=== PATIENT | male | born 1960 | race Caucasian/White ===

== ENCOUNTER 2018-06-12 02:45 | Emergency (ER) | payer MEDICAID, OTHER ==
[~2018-06-12] VITALS: Ht 175.3 cm; Wt 99.5 kg
[2018-06-12 02:53] VITALS: Ht 175.3 cm; Wt 99.5 kg
[2018-06-12] MEDS ORDERED: ACET500C5 PO (04:06)
[2018-06-12] MEDS ORDERED: BENA20TA65 PO (04:06)
--- NOTE | 2018-06-12 04:11 | ERD ---
ER Documentation Chief Complaint Chief Complaint Pt sent by clinic for HTN, med given at clinic HPI 58-year-old male is referred by clinic for elevated blood pressure. He was given an unspecified medication at the clinic. His blood pressure at triage is 158/83. Denies any chest pain, shortness of breath, weakness, deficits, visual changes mild posterior headache. States he has had high blood pressure in the past but he treated it with diet. ROS All systems reviewed and are negative except as per history of present illness. Medications Home Meds Active Scripts Acetaminophen* (Tylophen*) 500 Mg Capsule, 1 CAP PO Q6H PRN for PAIN AND OR ELEVATED TEMP, #20 CAP Prov:FE LARKIN MD 06/12/18 Benazepril Hcl* (Lotensin*) 20 Mg Tablet, 20 MG PO DAILY, #30 TAB Prov:FE LARKIN MD 06/12/18 Allergies Allergies: Coded Allergies: No Known Allergy (Unverified , 06/12/18) PMhx/Soc Medical and Surgical Hx: pt denies Medical Hx, pt denies Surgical Hx History of Surgery: No Anesthesia Reaction: No Hx Neurological Disorder: No Hx Respiratory Disorders: No Hx Cardiac Disorders: No Hx Psychiatric Problems: No Hx Miscellaneous Medical Probl: No Hx Alcohol Use: No Hx Substance Use: No Hx Tobacco Use: No Smoking Status: Never smoker FmHx Family History: No diabetes, No coronary disease, No other Physical Exam Vitals Vital Signs Date Temp Pulse Resp B/P (MAP) Pulse Ox O2 O2 Flow FiO2 Time Delivery Rate 06/12/18 97.8 85 16 158/83 88 02:53 (108) Physical Exam Const: No acute distress Head: Atraumatic Eyes: Normal Conjunctiva ENT: Normal External Ears, Nose and Mouth. Neck: Full range of motion. No meningismus. Resp: Clear to auscultation bilaterally Cardio: Regular rate and rhythm, no murmurs Abd: Soft, non tender, non distended. Normal bowel sounds Skin: No petechiae or rashes Back: No midline or flank tenderness Ext: No cyanosis, or edema Neur: Awake and alert. No appreciable focal neurologic deficits. Normal gait. Psych: Normal Mood and Affect Results 24 hrs Laboratory Tests Test 06/12/18 03:59 Bedside Urine pH (LAB) 6.0 Bedside Urine Protein (LAB) Negative Bedside Urine Glucose (UA) Negative Bedside Urine Ketones (LAB) Negative Bedside Urine Blood Negative Bedside Urine Nitrite (LAB) Negative Bedside Urine Leukocyte Esterase (L Negative Procedures/MDM EKG: Rate/Rhythm: Normal Sinus Rhythm. Pulse equals 78 QRS, ST, T-waves: No changes consistent w/ acute ischemia Impression: No evidence of ischemia or arrhythmia. Impression-normal EKG Urine is negative for abnormal findings. Patient presents with elevated blood pressure without signs of hypertensive emergency, endorgan damage. Posterior headache suggestive of likely tension headache. We will initiate Lotensin treatment, primary care follow-up and return precautions. The patient was stab le with no new complaints during the ER course. Clinically, there is no current evidence to suggest meningitis, sepsis, acute abdomen, pneumonia, stroke, acute coronary syndrome, pulmonary embolism, aortic dissection or any other emergent condition appearing to require further evaluation or hospitalization. Patient counseled regarding my diagnostic impression and care plan. Prior to discharge all questions answered. Pt agrees with treatment plan and understands strict return precautions. Pt is instructed to follow up with primary care provider within 24-48 hours. Precautionary instructions provided including instructions to return to the ER if not improving or for any worsening or changing symptoms or concerns. Disclaimer: Inadvertent spelling and grammatical errors are likely due to EHR/dictation software use and do not reflect on the overall quality of patient care. Also, please note that the electronic time recorded on this note does not necessarily reflect the actual time of the patient encounter. Departure Diagnosis: Primary Impression: Hypertension Hypertension type: unspecified Qualified Codes: I10 - Essential (primary) hypertension Condition: Stable Patient Instructions: Hypertension, New (Begin Treatment) Referrals: NO PRIMARY,CARE PHYSICIAN (PCP) [facility]) Usted se matthew hecho un examen mdico de control que le indica que no est en sidra condicin que requiera tratamiento urgente en el Departamento de Emergencia. Un estudio ms profundo y el tratamiento de huynh condicin pueden esperar sin ningn riesgo hasta que usted sea atendida/o en el consultorio de huynh mdico o sidra clnica. Es responsabilidad suya arreglar sidra bhaskar para el seguimiento del duran. MANEJO DE CONDICIONES NO URGENTES EN EL FUTURO 1) Si usted tiene un mdico de atencin primaria: Usted debera llamar a huynh mdico de atencin primaria antes de venir al dep artamento de emergencia. Despus de las horas de consultorio, huynh doctor o huynh asociado/a est disponible por telfono. El mdico o enfermero de odell en el servicio telefnico puede asesorarle por bebeto medio para atender el problema, o duran contrario se puede programar sidra bhaskar. 2) Si usted no tiene un mdico de atencin primaria: Llame al mdico o clnica de referencia que aparece abajo levi las horas de consultorio para hacer sidra bhaskar para que le vean. CLINICAS: [facility] [phone] [id number] [facility] [phone] [facility] [phone] [place] [id number] [phone] [facility] [phone] Additional Instructions: Recheck with primary doctor for continued follow-up of blood pressure. Recheck for new or worsening symptoms-chest pain, shortness of breath weakness or defici ts. FE LARKIN MD Jun 12, 2018 04:11
[2018-06-12 04:39] VITALS: BP 123/70; PULSE 80; RESP 18
== END 2018-06-12 04:43 | disposition home or self-care (01) ==
LOC: FTE 02:45
DX: I10 Essential (primary) hypertension (principal)
CPT/HCPCS: 81003; 93005; Z7502